=== PATIENT | male | born 1980 | race African-American/Black ===

== ENCOUNTER 2023-09-02 10:03 | Emergency (ER) | payer MEDICARE, OTHER ==
[~2023-09-02] VITALS: Ht 182.9 cm; Wt 68.0 kg
[~2023-09-02 10:03] MED LIST: LORA2TAB95 PO; QUET200T30 PO; QUET400T12 PO; SEROQUEL
[2023-09-02 10:05] VITALS: TEMP 97.7; O2SAT 99
[2023-09-02 12:35] VITALS: BP 160/81; PULSE 100; RESP 18
[2023-09-02] MEDS: IBUPROFEN 400MG TABLET PO ONE (12:35)
[2023-09-02] MEDS: HYDROCODONE/ACETAMINOPHEN 7.5/325MG TABLET PO ONE (12:35)
[2023-09-02] MEDS ORDERED: HYDR-4001 MT (13:38)
[2023-09-02] MEDS ORDERED: IBUP-2028 MT (13:38)
== END 2023-09-02 14:31 | disposition home or self-care (01) ==
LOC: ER 10:41
DX: S42.292A Other displaced fracture of upper end of left humerus, initial encounter for closed fracture (principal); F31.9 Bipolar disorder, unspecified; Z88.8 Allergy status to other drugs, medicaments and biological substances; Z88.0 Allergy status to penicillin; X58.XXXA Exposure to other specified factors, initial encounter; Y93.89 Activity, other specified; Y92.89 Other specified places as the place of occurrence of the external cause; Y99.8 Other external cause status
CPT/HCPCS: 73060; 29105; 99283; Z7610